=== PATIENT | male | born 2000 | race American Indian/Alaskan Native ===

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

== ENCOUNTER 2019-08-05 16:23 | Emergency (ER) | payer SELFPAY ==
[2019-08-05] MEDS ORDERED: TETRACAINE 0.5% OPHTH SOLN 4ML OD ONE (18:48)
[2019-08-05] MEDS ORDERED: FLUORESCEIN 1 MG STRIP OP ONE (18:48)
[2019-08-05] MEDS ORDERED: KETOROLAC 60 MG/2 ML INJ IM ONE (19:03)
[2019-08-05] MEDS ORDERED: TETANUS,DIPH,PERTUSS(ACELL) VACCINE 0.5 ML SYRINGE IM ONE (19:03)
--- NOTE | 2019-08-05 19:10 | Emergency Department Report ---
ED Eye Problem HPI - General Chief complaint: Eye Problems Stated complaint: RT EYEBALL INJURY/PAIN Time Seen by Provider: 08/05/19 18:44 Source: patient Mode of arrival: Ambulatory Limitations: No Limitations - History of Present Illness Initial comments: 19-year-old male presents to the hospital complaining of right eye injury. while playing basket ball. A finger struck him in the eye approximately 3 PM. Patient took out his right contact lens but left the right one in at this time. He complains of 10/10 on a pain worse with light and blurry vision. Last tetanus was 10 years ago. - Related Data Previous Rx's Medication Instructions Recorded Last Taken Type Gentamicin 0.3% Ophth Soln 2 drops OP Q4H 5 Days bottle 08/05/19 Unknown Rx HYDROcodone/APAP 5-325 [[place] 1 each PO Q6HR PRN #14 tablet 08/05/19 Unknown Rx 5/325] Ibuprofen [Motrin] 600 mg PO Q8H PRN #20 tablet 08/05/19 Unknown Rx Allergies Allergy/AdvReac Type Severity Reaction Status Date / Time Penicillins Allergy Unknown Verified 11/19/18 20:34 ED Review of Systems ROS: Stated complaint: RT EYEBALL INJURY/PAIN Other details as noted in HPI Comment: All other systems reviewed and negative ED Past Medical Hx - Past Medical History Previous Medical History?: No - Surgical History Additional Surgical History: facial surgery - Social History Smoking Status: Never Smoker Substance Use Type: None - Medications Home Medications: Home Medications Medication Instructions Recorded Confirmed Last Taken Type Gentamicin 0.3% Ophth Soln 2 drops OP Q4H 5 Days bottle 08/05/19 Unknown Rx HYDROcodone/APAP 5-325 [[place] 1 each PO Q6HR PRN #14 tablet 08/05/19 Unknown Rx 5/325] Ibuprofen [Motrin] 600 mg PO Q8H PRN #20 tablet 08/05/19 Unknown Rx ED Physical Exam - General Limitations: No Limitations - Other Other exam information: General: No acute distress Head: Atraumatic Eyes: Patient complains of pain and sensitivity to light. Pupils equal reactive to light both consensual indirect light reflex. Extraocular movements intact. Diffuse conjunctival redness with redness greates medially and inferiorly. + cornea abrasion, + pain relief after flourscene, no hyphema, pupil normal shape ENT: Moist mucous membranes Neck: Normal appearance, no midline tenderness Chest: Clear to auscultation bilaterally CV: Regular rate and rhythm Abdomen: Soft, normal bowel sounds, nontender, nondistended, no rebound or guarding Back: Normal inspection Extremity: Normal inspection infection, full range of motion Neuro: Alert O x 3, no facial asymmetry, speech clear, no gross motor sensory deficit Psych: Appropriate behavior Skin: No rash ED Course Vital Signs 08/05/19 08/05/19 16:43 18:58 Temperature 98.9 F 98.3 F Pulse Rate 88 74 Respiratory 15 16 Rate Blood Pressure 112/71 Blood Pressure 109/68 [Left] O2 Sat by Pulse 99 Oximetry ED Medical Decision Making - Medical Decision Making pain decreaed to 2/10 after tetracaine tetanus provided toradol for pain cornea abrasion after eye trauma topical abx and pain meds will be prescribed Visual acuity obtained. pt had contact lens in right eye, left eye did not have a contact lens and pt states he significant poor long distance vision at baseline and unable to identify the E a this time. Unfortunately we cannot please contact lens in the right eye to verify visual acuity due to eye injury. Patient will be advised not to wear contact lenses into her glasses instead. - Differential Diagnosis subconjctival hemorrhage, hyphema, abrasion, globe rupture much medical iri Critical Care Time: No Critical care attestation.: If time is entered above; I have spent that time in minutes in the direct care of this critically ill patient, excluding procedure time. ED Disposition Clinical Impression: Right cornea abrasion Disposition: DC-01 TO HOME OR SELFCARE Is pt being admited?: No Does the pt Need Aspirin: No Condition: Stable Instructions: Corneal Abrasion (ED) Additional Instructions: Take the medication as prescribed. Follow-up with an outboard motorboat rigger. Return if symptoms worsen as indicated by your discharge instructions. Download [employer] [place] to find most affordable [place] for your medications. Prescriptions: Gentamicin 0.3% Ophth Soln 2 drops OP Q4H 5 Days bottle Ibuprofen [Motrin] 600 mg PO Q8H PRN #20 tablet PRN Reason: Pain HYDROcodone/APAP 5-325 [[place] 5/325] 1 each PO Q6HR PRN #14 tablet PRN Reason: Pain Referrals: ZOILA TELLES MD [Staff Physician] - 2-3 Days Time of Disposition: 19:56
[2019-08-05] MEDS ORDERED: HYDROcodone/ACETAMINOPHEN 5-325 MG TAB PO ONE (19:56)
[2019-08-05 20:24] VITALS: BP 120/76
== END 2019-08-05 20:25 | disposition home or self-care (01) ==
LOC: ED 16:23
DX: S05.01XA Injury of conjunctiva and corneal abrasion without foreign body, right eye, initial encounter (principal); Z88.0 Allergy status to penicillin; X58.XXXA Exposure to other specified factors, initial encounter; Y93.89 Activity, other specified; Y92.89 Other specified places as the place of occurrence of the external cause; Y99.8 Other external cause status
CPT/HCPCS: 90471; 90715; 96372; 99282; J1885